=== PATIENT | male | born 1995 | race Caucasian/White ===

== ENCOUNTER 2024-05-15 13:22 | Emergency (ER) | payer OTHER ==
[~2024-05-15] VITALS: Ht 195.6 cm; Wt 120.5 kg
[2024-05-15 13:28] VITALS: TEMP 97.6
[2024-05-15 13:59] VITALS: BP 148/78; PULSE 75
== END 2024-05-15 13:59 | disposition home or self-care (01) ==
LOC: COL.ER 13:22
DX: Z71.1 Person with feared health complaint in whom no diagnosis is made (principal)